=== PATIENT | female | born 1970 | race Caucasian/White ===

== ENCOUNTER → 2016-08-29 | Outpatient (CLI) | payer OTHER ==
--- NOTE | 2016-08-29 13:47 | P.PN ---
Progress Note - Text Patient was scheduled to have a consultation today, and before she was seen by me, the nurse told the patient, that if patient used marijuana ,we cannot give him any descriptions for any pain medication, the patient left the clinic , before she was seen by the nurse , and I did not interview the patient
== END | disposition home or self-care (01) ==
LOC: PNWHC3 12:22
PROVIDERS: ATTEND Specialist
DX: M54.5 Low back pain (principal)
CPT/HCPCS: 99211